=== PATIENT | female | born 1960 | race Two or more races ===

== ENCOUNTER 2023-03-05 07:59 | Emergency (ER) | payer SELFPAY ==
[~2023-03-05] VITALS: Ht 162.6 cm; Wt 142.8 kg
[2023-03-05 08:25] LABS: Basophils # (auto) 0.2 10 ^3/uL (0-0.2); Eosinophils # (auto) 0.3 10 ^3/uL (0-0.8); Eosinophils % (auto) 2.1 % (0.0-7.0); Hematocrit 40.2 % (36.0-46.0); Hemoglobin 13.2 g/dL (12.2-16.2); Lymphocytes # (auto) 4.2 10 ^3/uL (0.4-5.4); Lymphocytes % (auto) 27.8 % (10.0-50.0); Mean Corpuscular Hemoglobin 28.6 pg (28.0-32.0); Mean Corpuscular Hgb Conc. 32.9 g/dL (32.0-36.0); Mean Corpuscular Volume 86.9 fL (80.0-100.0); Monocytes # (auto) 1.1 10 ^3/uL (0-1.3); Monocytes % (auto) 7.1 % (0.0-12.0); Neutrophils # (auto) 9.4 10 ^3/uL (1.6-8.6); Nucleated Red Blood Cells % 0.1 %; Red Blood Cells 4.63 10^6/uL (4.0-5.20); Red Cell Distribution Width 14.1 % (11.8-14.3); White Blood Cell 15.2 10^3/uL (4.4-10.8)
[2023-03-05] MEDS ORDERED: LORazepam 2MG/ML-1ML VIAL IV ONE (08:30)
[2023-03-05 08:41] LABS: INR 1.01 (0.9-1.15); Partial Thromboplastin Time 27.2 SEC (24.5-34.5)
[2023-03-05 08:48] LABS: Albumin 3.4 g/dL (3.4-5.0); Calcium 8.7 mg/dL (8.5-10.1); Magnesium 2.2 mg/dL (1.6-2.6); Potassium 3.8 mmol/L (3.5-5.1)
[2023-03-05 08:53] LABS: BUN/Creatinine Ratio 22.9 (10.0-20.0); Bilirubin, Total 0.3 mg/dL (0.2-1.0); Total Protein 7.3 g/dL (6.4-8.2)
[2023-03-05 09:01] LABS: Urine Bacteria FEW /hpf (None Seen); Urine Blood Negative /uL (Negative); Urine Specific Gravity 1.016 (1.001-1.035); Urine WBC 5 /hpf (0 - 5)
[2023-03-05] MEDS ORDERED: CIPR-173 PO (10:41)
[2023-03-05 11:57] VITALS: BP 119/76
== END 2023-03-05 11:58 | disposition home or self-care (01) ==
LOC: ER 07:59
DX: N39.0 Urinary tract infection, site not specified (principal); R31.9 Hematuria, unspecified; R20.0 Anesthesia of skin; E78.5 Hyperlipidemia, unspecified; Z86.73 Personal history of transient ischemic attack (TIA), and cerebral infarction without residual deficits; Z90.89 Acquired absence of other organs; Z98.890 Other specified postprocedural states
CPT/HCPCS: 36415; 70450; 72125; 72131; 80053; 81001; 83735; 85025; 85610; 85730; 93005; 96374; 99285; J2060